=== PATIENT | female | born 1975 | race Two or more races ===

== ENCOUNTER 2023-04-05 17:24 | Emergency (ER) | payer OTHER ==
[2023-04-05 17:34] VITALS: BP 123/63; PULSE 88; RESP 18; TEMP 98; BMI 32.5
[2023-04-05] MEDS ORDERED: KETOROLAC TROMETHAMINE 30 MG/1 ML VIAL IM ONE (20:35)
[2023-04-05] MEDS ORDERED: METHOCARBAMOL 750 MG TABLET PO ONE (20:36)
[2023-04-05] MEDS ORDERED: ACETAMINOPHEN 500 MG TABLET (FP) PO ONE (20:36)
[2023-04-05] MEDS ORDERED: ACETAMINOPHEN 500 MG TABLET (FP) ONE (20:38)
[2023-04-05] MEDS ORDERED: KETOROLAC TROMETHAMINE 30 MG/1 ML VIAL ONE (20:38)
[2023-04-05] MEDS ORDERED: METHOCARBAMOL 500 MG TABLET ONE (20:38)
== END 2023-04-05 22:40 | disposition home or self-care (01) ==
LOC: JERFT 17:24
PROC: 3E0233Z Introduction of Anti-inflammatory into Muscle, Percutaneous Approach (ICD-10-PCS; principal; 2023-04-05)
DX: M54.50 Low back pain, unspecified (principal); V49.40XA Driver injured in collision with unspecified motor vehicles in traffic accident, initial encounter; Y92.410 Unspecified street and highway as the place of occurrence of the external cause
CPT/HCPCS: 72100-TC-FY; 99284-25